=== PATIENT | male | born 1960 | race Caucasian/White ===

== ENCOUNTER 2021-10-07 17:47 | Inpatient (IN) | payer OTHER ==
--- NOTE | 2021-10-07 18:24 | ED ---
General Adult HPI - General Chief complaint: Recheck/Abnormal Lab/Rx Stated complaint: ETOH Time Seen by Provider: 10/07/21 17:51 Source: patient, EMS Mode of arrival: EMS Limitations: no limitations - History of Present Illness Initial comments: Patient is a 61-year-old male presents to the emergency room via EMS from [place] due to stumbling and falling outside injuring his left shoulder and chest wall where is he is complaining of pain. He is also experiencing significant tremors and occasional altered mental status from alcohol withdrawals. He states that he only drinks "a little bit" of red wine every day. He denies any loss of consciousness with his fall. He denies any hallucinations, delusions, suicidal or homicidal thoughts. In addition to his EtOH and smoking history has a history of hypertension and is on lisinopril at [place]. He denies any other complaints or concerns at this time. Review of Systems ROS Statement: Those systems with pertinent positive or pertinent negative responses have been documented in the HPI. ROS Other: All systems not noted in ROS Statement are negative. Past Medical History Past Medical History: Hypertension Past Surgical History: Hernia Repair Smoking Status: Current every day smoker Past Alcohol Use History: Abuse, Daily Past Drug Use History: None Reported General Exam Limitations: no limitations General appearance: alert, in no apparent distress Head exam: Present: atraumatic, normocephalic, normal inspection Eye exam: Present: normal appearance, PERRL, EOMI. Absent: scleral icterus, conjunctival injection, periorbital swelling ENT exam: Present: normal exam, mucous membranes moist Neck exam: Present: normal inspection. Absent: tenderness, meningismus, lymphadenopathy Respiratory exam: Present: normal lung sounds bilaterally, chest wall tenderness (Left-sided). Absent: respiratory distress, wheezes, rales, rhonchi, stridor Cardiovascular Exam: Present: regular rate, normal rhythm, normal heart sounds. Absent: systolic murmur, diastolic murmur, rubs, gallop, clicks GI/Abdominal exam: Present: soft, normal bowel sounds. Absent: distended, tenderness, guarding, rebound, rigid Extremities exam: Present: normal inspection, full ROM, normal capillary refill. Absent: tenderness, pedal edema, joint swelling, calf tenderness Left Shoulder Exam: Present: normal inspection, full ROM, tenderness. Absent: swelling, abrasion, laceration, deformity, crepitus, dislocation Back exam: Present: normal inspection Neurological exam: Present: alert, CN II-XII intact, other (Orientated [address] Slow responses at times but appropriate. Tremor noted to bilateral upper extremities.) Expanded Eye Response: (4) open spontaneously Motor Response: (6) obeys commands Verbal Response: (5) oriented (overall orientated difficulty with place at times.) Tae Total: 15 Psychiatric exam: Present: normal affect, normal mood Skin exam: Present: warm, dry, intact, normal color. Absent: rash Course Vital Signs 10/07/21 17:58 Temperature 98.5 F Pulse Rate 99 Respiratory 20 Rate Blood Pressure 113/87 Medical Decision Making - Medical Decision Making Active upper extremity tremor noted no generalized seizing. Alert and orientated [address] as he is not from the area but overall orientated. Slow responses at times. Recent fall with complaints of left shoulder and left rib cage pain without any popping or range of motion impairment. No altered mental status or head trauma. No need for CT of the head. Check x-ray of left shoulder and left rib cage due to trauma with pain. Will need admission given active DTs with serial protocol. No local provider. No local primary care provider. Will notify [facility] regarding admission for alcohol withdrawal with DTs. - Lab Data Result diagrams: 10/07/21 18:24 10/07/21 18:24 Lab Results 10/07/21 10/07/21 Range/Units 18:24 18:24 WBC 6.0 (3.8-10.6) k/uL RBC 3.63 L (4.30-5.90) m/uL Hgb 12.6 L (13.0-17.5) gm/dL Hct 36.4 L (39.0-53.0) % MCV 100.2 H (80.0-100.0) fL MCH 34.6 (25.0-35.0) pg MCHC 34.5 (31.0-37.0) g/dL RDW 12.5 (11.5-15.5) % Plt Count 252 (150-450) k/uL MPV 7.1 Neutrophils % 64 % Lymphocytes % 25 % Monocytes % 7 % Eosinophils % 2 % Basophils % 1 % Neutrophils # 3.8 (1.3-7.7) k/uL Lymphocytes # 1.5 (1.0-4.8) k/uL Monocytes # 0.4 (0-1.0) k/uL Eosinophils # 0.1 (0-0.7) k/uL Basophils # 0.1 (0-0.2) k/uL Sodium 129 L (137-145) mmol/L Potassium 3.9 (3.5-5.1) mmol/L Chloride 100 (98-107) mmol/L Carbon Dioxide 26 (22-30) mmol/L Anion Gap 3 mmol/L BUN 8 L (9-20) mg/dL Creatinine 0.64 L (0.66-1.25) mg/dL Est GFR (CKD-EPI)AfAm >90 (>60 ml/min/1.73 sqM) Est GFR (CKD-EPI)NonAf >90 (>60 ml/min/1.73 sqM) Glucose 91 (74-99) mg/dL Calcium 8.7 (8.4-10.2) mg/dL Phosphorus 3.5 (2.5-4.5) mg/dL Magnesium 1.9 (1.6-2.3) mg/dL Total Bilirubin 0.7 (0.2-1.3) mg/dL AST 117 H (17-59) U/L ALT 86 H (4-49) U/L Alkaline Phosphatase 62 (38-126) U/L Total Protein 6.0 L (6.3-8.2) g/dL Albumin 3.7 (3.5-5.0) g/dL Serum Alcohol <10 mg/dL - EKG Data EKG Comments: Sinus rhythm, ventricular rate 82 bpm, ID interval 143 ms, QRS duration 80 ms, QT/QTC 362/401 ms, ID T axis 61, 23, 37 - Radiology Data Radiology results: report reviewed, image reviewed Disposition Clinical Impression: Alcohol abuse with withdrawal Disposition: ADMITTED IP TO THIS [facility] Condition: Stable Is patient prescribed a controlled substance at d/c from ED?: No Referrals: None,Stated [Primary Care Provider] - 1-2 days Time of Disposition: 18:48
[2021-10-07 18:33] LABS: Basophils # (A) 0.1 k/uL (0-0.2); Basophils % (A) 1 %; Eosinophils # (A) 0.1 k/uL (0-0.7); Eosinophils % (A) 2 %; HCT 36.4 % (39.0-53.0); HGB 12.6 gm/dL (13.0-17.5); Lymphocytes # (A) 1.5 k/uL (1.0-4.8); Lymphocytes % (A) 25 %; MCH 34.6 pg (25.0-35.0); MCHC 34.5 g/dL (31.0-37.0); MCV 100.2 fL (80.0-100.0); Mean Platelet Volume 7.1; Monocytes # (A) 0.4 k/uL (0-1.0); Monocytes % (A) 7 %; Neutrophils # (A) 3.8 k/uL (1.3-7.7); Neutrophils % (A) 64 %; Platelet Count 252 k/uL (150-450); RBC 3.63 m/uL (4.30-5.90); RDW 12.5 % (11.5-15.5)
[2021-10-07 18:43] LABS: ALT 86 U/L (4-49); AST 117 U/L (17-59); African American GFR (CKD) >90 (>60 ml/min/1.73 sqM); Albumin 3.7 g/dL (3.5-5.0); Alcohol <10 mg/dL; Alkaline Phosphatase 62 U/L (38-126); Anion Gap 3 mmol/L; Blood Urea Nitrogen 8 mg/dL (9-20); Calcium 8.7 mg/dL (8.4-10.2); Carbon Dioxide 26 mmol/L (22-30); Chloride 100 mmol/L (98-107); Glucose 91 mg/dL (74-99); Magnesium 1.9 mg/dL (1.6-2.3); Non-African American GFR(CKD) >90 (>60 ml/min/1.73 sqM); Phosphorus 3.5 mg/dL (2.5-4.5); Potassium 3.9 mmol/L (3.5-5.1); Sodium 129 mmol/L (137-145); Total Bilirubin 0.7 mg/dL (0.2-1.3)
[2021-10-07] MEDS ORDERED: NALOXONE 0.4 MG/ML 1 ML VIAL IV PRN (18:45)
[2021-10-07 18:55] LABS: Prothrombin Time 10.6 sec (9.0-12.0)
[2021-10-07 19:04] LABS: Cocaine Screen,Urine Not Detected (NotDetected); Phencyclidine Screen,Urine Not Detected (NotDetected); Urn Cannabinoid Scrn Not Detected (NotDetected)
[2021-10-07 19:05] LABS: Amphetamine Screen,Urine Not Detected (NotDetected); Barbiturate Screen,Urine Not Detected (NotDetected); Benzodiazepines Screen,Urine Detected (NotDetected); Methadone Screen, Urine Not Detected (NotDetected); Opiate Screen,Urine Not Detected (NotDetected); Oxycodone Screen, Urine Not Detected (NotDetected); Tricyclic Antidepressant,Urine Not Detected (NotDetected)
[2021-10-07] MEDS ORDERED: SODIUM CHLORIDE 0.9% 1,000 ML with MVI, ADULT NO.4 WITH VIT K 10 ML, THIAMINE 100 MG, F... IV ONE ×4 (19:15)
--- NOTE | 2021-10-07 19:31 | XR ---
EXAMINATION TYPE: XR shoulder complete LT DATE OF EXAM: 10/07/2021 COMPARISON: NONE HISTORY: Shoulder pain TECHNIQUE: 3 views FINDINGS: There is no evidence of fracture nor dislocation. Joint spaces are normal. There are no pat hologic calcifications. IMPRESSION: Negative left shoulder exam. No fracture.
--- NOTE | 2021-10-07 19:35 | XR ---
EXAMINATION TYPE: XR ribs LT DATE OF EXAM: 10/07/2021 COMPARISON: NONE HISTORY: Rib pain TECHNIQUE: 4 views FINDINGS: There is no evidence of pleural effusion or pneumothorax. Left ribs are intact. Left should er intact. IMPRESSION: Negative left rib exam. No fracture
[2021-10-07] MEDS: LORazepam 2 MG/ML INJ IV PRN (21:33)
[2021-10-08] MEDS: LORazepam 2 MG/ML INJ IV PRN ×8 (04:49→17:58)
[2021-10-08 08:45] LABS: African American GFR (CKD) >90 (>60 ml/min/1.73 sqM); Anion Gap 2 mmol/L; Blood Urea Nitrogen 5 mg/dL (9-20); Calcium 8.4 mg/dL (8.4-10.2); Carbon Dioxide 25 mmol/L (22-30); Chloride 104 mmol/L (98-107); Glucose 120 mg/dL (74-99); Non-African American GFR(CKD) >90 (>60 ml/min/1.73 sqM); Potassium 3.7 mmol/L (3.5-5.1); Sodium 131 mmol/L (137-145)
[2021-10-08 12:27] VITALS: BMI 18.8
[2021-10-08] MEDS: chlordiazePOXIDE 25 MG CAP PO SCH ×2 (13:45→18:09)
--- NOTE | 2021-10-08 17:58 | P.HPIM ---
History of Present Illness H&P Date: 10/07/21 Chief Complaint: EtOH 61-year-old male presents to the emergency room via EMS from [place] due to stumbling and falling outside injuring his left shoulder and chest wall where is he is complaining of pain. He is also experiencing significant tremors and occasional altered mental status from alcohol withdrawals. He states that he only drinks "a little bit" of red wine every day. He denies any loss of consciousness with his fall. He denies any hallucinations, delusions, suicidal or homicidal thoughts. In addition to his EtOH and smoking history has a history of hypertension and is on lisinopril at [place]. He denies any other complaints or concerns at this time. Alert and orientated [address] as he is not from the area but overall orientated. Slow responses at times. Recent fall with complaints of left shoulder and left rib cage pain without any popping or range of motion impairment. No altered mental status or head trauma. No need for CT of the head. Check x-ray of left shoulder and left rib cage due to trauma with pain. Will need admission given active DTs with serial protocol. Blood work reveals sodium of 129, potassium 3.9, BUN of 8, creatinine 0.6 and blood glucose of 91; AST 117 with ALT of 86 Review of Systems REVIEW OF SYSTEMS: CONSTITUTIONAL: No fever, no malaise, no fatigue. HEENT: No recent visual problems or hearing problems. Denied any sore throat. CARDIOVASCULAR: No chest pain, orthopnea, PND, no palpitations, no syncope. PULMONARY: No shortness of breath, no cough, no hemoptysis. GASTROINTESTINAL: No diarrhea, no nausea, no vomiting, no abdominal pain. NEUROLOGICAL: No headaches, no weakness, no numbness. HEMATOLOGICAL: Denies any bleeding or petechiae. GENITOURINARY: Denies any burning micturition, frequency, or urgency. MUSCULOSKELETAL/RHEUMATOLOGICAL: Denies any joint pain, swelling, or any muscle pain. ENDOCRINE: Denies any polyuria or polydipsia. The rest of the 14-point review of systems is negative. Past Medical History Past Medical History: Hypertension Past Surgical History: Hernia Repair Smoking Status: Current every day smoker Past Alcohol Use History: Abuse, Daily Past Drug Use History: None Reported Medications and Allergies Home Medications Medication Instructions Recorded Confirmed Type Folic Acid 0.4 mg PO DAILY 10/07/21 10/07/21 History LORazepam [Ativan] 1 - 2 mg PO Q4H 10/07/21 10/07/21 History Thiamine [Vitamin B-1] 100 mg PO DAILY 10/07/21 10/07/21 History cloNIDine HCL [Catapres] 0.1 - 0.3 mg PO Q4H PRN 10/07/21 10/07/21 History lisinopriL [Zestril] 10 mg PO DAILY 10/07/21 10/07/21 History Allergies Allergy/AdvReac Type Severity Reaction Status Date / Time No Known Allergies Allergy Verified 10/07/21 19:40 Physical Exam Vitals: Vital Signs Temp Pulse Resp BP 10/07/21 17:58 98.5 F 99 20 113/87 Intake and Output 10/07/21 10/07/21 10/07/21 06:59 14:59 22:59 Other: Weight 54.431 kg PHYSICAL EXAMINATION: GENERAL: The patient is alert and oriented x3, not in any acute distress. Well developed, well nourished. HEENT: Pupils are round and equally reacting to light. EOMI. No scleral icterus. No conjunctival pallor. Normocephalic, atraumatic. No pharyngeal erythema. No thyromegaly. CARDIOVASCULAR: S1 and S2 present. No murmurs, rubs, or gallops. PULMONARY: Chest is clear to auscultation, no wheezing or crackles. ABDOMEN: Soft, nontender, nondistended, normoactive bowel sounds. No palpable organomegaly. MUSCULOSKELETAL: No joint swelling or deformity. EXTREMITIES: No cyanosis, clubbing, or pedal edema. NEUROLOGICAL: Gross neurological examination did not reveal any focal deficits. SKIN: No rashes. Results CBC & Chem 7: 10/07/21 18:24 10/08/21 08:00 Labs: Abnormal Lab Results - Last 24 Hours (Table) 10/07/21 10/07/21 10/07/21 Range/Units 18:24 18:24 18:30 RBC 3.63 L (4.30-5.90) m/uL Hgb 12.6 L (13.0-17.5) gm/dL Hct 36.4 L (39.0-53.0) % MCV 100.2 H (80.0-100.0) fL Sodium 129 L (137-145) mmol/L BUN 8 L (9-20) mg/dL Creatinine 0.64 L (0.66-1.25) mg/dL AST 117 H (17-59) U/L ALT 86 H (4-49) U/L Total Protein 6.0 L (6.3-8.2) g/dL U Benzodiazepines Scrn Detected H (NotDetected) Assessment and Plan Assessment: 1. EtOH abuse/withdrawal - Patient has been started on IV fluids with thiamine and folic acid; start patient on CIWA protocol with Ativan; Librium as needed 2. Hyponatremia; sodium is 129; start patient on IV fluid hydration and monitor electrolytes closely; make further adjustments as needed 3. Transaminitis; likely related to EtOH abuse; we will monitor liver enzymes closely; planned to initiate further workup if liver enzymes continue to trend up 4. Left shoulder/rib pain; x-ray completed in ED which is negative for fracture; likely related to fall 5. Hypertension; lisinopril 10 mg daily 6. Chronic tobacco use; nicotine patch while inpatient DVT prophylaxis; SCDs CODE STATUS; full code
[2021-10-08] MEDS ORDERED: PHENobarbital SODIUM 130 MG/ML 1 ML VIAL IV ONE (21:00)
[2021-10-08] MEDS: NICOTINE 14MG/24HR PATCH TRANSDERM SCH (21:16)
[2021-10-09] MEDS: diazePAM 5 MG TAB PO SCH ×3 (03:10→17:47)
[2021-10-09] MEDS: LORazepam 2 MG/ML INJ IV PRN ×6 (05:35→20:30)
[2021-10-09] MEDS: NICOTINE 14MG/24HR PATCH TRANSDERM SCH ×2 (08:23→20:48)
[2021-10-09] MEDS: lisinopriL 10 MG TAB PO SCH (08:23)
[2021-10-09 12:05] LABS: African American GFR (CKD) 118.5 (60.0-200.0); Anion Gap 11.6 mmol/L (10.00-18.00); BUN/Creat Ratio 4.78 Ratio (12.00-20.00); Blood Urea Nitrogen 3.3 mg/dL (9.0-27.0); Calcium 8.4 mg/dL (8.7-10.3); Carbon Dioxide 23.1 mmol/L (20.0-27.5); Non-African American GFR(CKD) 102.3 (60.0-200.0); Potassium 3.7 mmol/L (3.5-5.5)
[2021-10-09 13:24] LABS: African American GFR (CKD) >90 (>60 ml/min/1.73 sqM); Anion Gap 6 mmol/L; Blood Urea Nitrogen 3 mg/dL (9-20); Calcium 8.4 mg/dL (8.4-10.2); Carbon Dioxide 23 mmol/L (22-30); Chloride 102 mmol/L (98-107); Glucose 123 mg/dL (74-99); Non-African American GFR(CKD) >90 (>60 ml/min/1.73 sqM); Potassium 3.6 mmol/L (3.5-5.1); Sodium 131 mmol/L (137-145)
[2021-10-09 13:54] LABS: Basophils # (A) 0.1 k/uL (0-0.2); Basophils % (A) 1 %; Eosinophils # (A) 0.1 k/uL (0-0.7); Eosinophils % (A) 2 %; HCT 43.6 % (39.0-53.0); HGB 14.3 gm/dL (13.0-17.5); Lymphocytes # (A) 0.9 k/uL (1.0-4.8); Lymphocytes % (A) 16 %; MCH 33.8 pg (25.0-35.0); MCHC 32.7 g/dL (31.0-37.0); MCV 103.3 fL (80.0-100.0); Macrocytosis Slight; Mean Platelet Volume 8.1; Monocytes # (A) 0.5 k/uL (0-1.0); Monocytes % (A) 9 %; Neutrophils # (A) 4.1 k/uL (1.3-7.7); Neutrophils % (A) 71 %; Platelet Count 226 k/uL (150-450); RBC 4.22 m/uL (4.30-5.90); RDW 12.3 % (11.5-15.5); WBC 5.8 k/uL (3.8-10.6)
[2021-10-09] MEDS ORDERED: PHENobarbital SODIUM 130 MG/ML 1 ML VIAL IV ONE (21:30)
[2021-10-10] MEDS: diazePAM 5 MG TAB PO SCH ×2 (02:21→08:52)
[2021-10-10] MEDS: NICOTINE 14MG/24HR PATCH TRANSDERM SCH (08:52)
[2021-10-10] MEDS: lisinopriL 10 MG TAB PO SCH (08:52)
[2021-10-10 09:05] LABS: African American GFR (CKD) 125.8 (60.0-200.0); Anion Gap 11.8 mmol/L (10.00-18.00); Blood Urea Nitrogen 3.6 mg/dL (9.0-27.0); Calcium 8.5 mg/dL (8.7-10.3); Carbon Dioxide 22.2 mmol/L (20.0-27.5); Non-African American GFR(CKD) 108.5 (60.0-200.0); Potassium 3.8 mmol/L (3.5-5.5)
[2021-10-10] MEDS: LORazepam 2 MG/ML INJ IV PRN (10:54)
[2021-10-10] MEDS ORDERED: THIAMINE 100 MG/ML 2 ML VIAL IM STA (11:20)
--- NOTE | 2021-10-10 11:20 | P.PN ---
Subjective Progress Note Date: 10/09/21 Principal diagnosis: EtOH abuse/withdrawal Transaminitis Hyponatremia 61-year-old male presents to the emergency room via EMS from [place] due to stumbling and falling outside injuring his left shoulder and chest wall where is he is complaining of pain. He is also experiencing significant tremors and occasional altered mental status from alcohol withdrawals. He states that he only drinks "a little bit" of red wine every day. He denies any loss of consciousness with his fall. He denies any hallucinations, delusions, suicidal or homicidal thoughts. In addition to his EtOH and smoking history has a history of hypertension and is on lisinopril at [place]. He denies any other complaints or concerns at this time. Alert and orientated [address] as he is not from the area but overall orientated. Slow responses at times. Recent fall with complaints of left shoulder and left rib cage pain without any popping or range of motion impairment. No altered mental status or head trauma. No need for CT of the head. Check x-ray of left shoulder and left rib cage due to trauma with pain. Will need admission given active DTs with serial protocol. Blood work reveals sodium of 129, potassium 3.9, BUN of 8, creatinine 0.6 and blood glucose of 91; AST 117 with ALT of 86 10/09/2021 Patient is seen and evaluated sitting up in bed; more alert this morning; reports he's feeling as shaky; no complaining of chest and shortness of breath Vital signs are reviewed and blood pressure remains elevated at 161/88; pulse of 75 with a saturation of 100% on room air Patient remains on CIWA protocol with Ativan; has been placed on Librium 25 mg 3 times a day; continues to require extra doses of phenobarbital - Continue with IV fluids as ordered along with thiamine and folic acid Objective - Vital Signs Vital signs: Vital Signs Temp 98.2 F 10/09/21 08:00 Pulse 74 10/09/21 08:00 Resp 18 10/09/21 02:00 BP 160/94 10/09/21 08:00 Pulse Ox 99 10/09/21 08:00 FiO2 Intake & Output 10/08/21 10/09/21 10/09/21 18:59 06:59 18:59 Output Total 150 Balance -150 Weight 54.431 kg Output: Urine 150 Other: Voiding Method Urinal Diaper Incontinent External Catheter # Voids 2 3 - Exam GENERAL: The patient is alert and oriented x3, not in any acute distress. Well developed, well nourished. HEENT: Pupils are round and equally reacting to light. EOMI. No scleral icterus. No conjunctival pallor. Normocephalic, atraumatic. No pharyngeal erythema. No thyromegaly. CARDIOVASCULAR: S1 and S2 present. No murmurs, rubs, or gallops. PULMONARY: Chest is clear to auscultation, no wheezing or crackles. ABDOMEN: Soft, nontender, nondistended, normoactive bowel sounds. No palpable organomegaly. MUSCULOSKELETAL: No joint swelling or deformity. EXTREMITIES: No cyanosis, clubbing, or pedal edema. NEUROLOGICAL: Gross neurological examination did not reveal any focal deficits. SKIN: No rashes. - Labs CBC & Chem 7: 10/09/21 07:25 10/10/21 05:44 Assessment and Plan Assessment: 1. EtOH abuse/withdrawal - Patient has been started on IV fluids with thiamine and folic acid; start patient on CIWA protocol with Ativan; Librium as needed 2. Hyponatremia; sodium is 129; start patient on IV fluid hydration and monitor electrolytes closely; make further adjustments as needed 3. Transaminitis; likely related to EtOH abuse; we will monitor liver enzymes closely; planned to initiate further workup if liver enzymes continue to trend up 4. Left shoulder/rib pain; x-ray completed in ED which is negative for fracture; likely related to fall 5. Hypertension; lisinopril 10 mg daily 6. Chronic tobacco use; nicotine patch while inpatient DVT prophylaxis; SCDs CODE STATUS; full code
--- NOTE | 2021-10-10 14:52 | P.PN ---
Subjective Progress Note Date: 10/10/21 Principal diagnosis: EtOH abuse/withdrawal Transaminitis Hyponatremia 61-year-old male presents to the emergency room via EMS from [place] due to stumbling and falling outside injuring his left shoulder and chest wall where is he is complaining of pain. He is also experiencing significant tremors and occasional altered mental status from alcohol withdrawals. He states that he only drinks "a little bit" of red wine every day. He denies any loss of consciousness with his fall. He denies any hallucinations, delusions, suicidal or homicidal thoughts. In addition to his EtOH and smoking history has a history of hypertension and is on lisinopril at [place]. He denies any other complaints or concerns at this time. Alert and orientated [address] as he is not from the area but overall orientated. Slow responses at times. Recent fall with complaints of left shoulder and left rib cage pain without any popping or range of motion impairment. No altered mental status or head trauma. No need for CT of the head. Check x-ray of left shoulder and left rib cage due to trauma with pain. Will need admission given active DTs with serial protocol. Blood work reveals sodium of 129, potassium 3.9, BUN of 8, creatinine 0.6 and blood glucose of 91; AST 117 with ALT of 86 10/09/2021 Patient is seen and evaluated sitting up in bed; more alert this morning; reports he's feeling as shaky; no complaining of chest and shortness of breath Vital signs are reviewed and blood pressure remains elevated at 161/88; pulse of 75 with a saturation of 100% on room air Patient remains on CIWA protocol with Ativan; has been placed on Librium 25 mg 3 times a day; continues to require extra doses of phenobarbital - Continue with IV fluids as ordered along with thiamine and folic acid 10/10/2021 Patient is seen and evaluated sitting up in bed; remains sleepy but arousable Vital signs are reviewed and stable Patient continued to be intolerant to CIWA protocol with Ativan; patient has received phenobarbital which seems to be more effective; plan to switch patient to CIWA protocol with phenobarbital Patient remains on IV fluid hydration; we will continue to monitor electrolytes and renal function Objective - Vital Signs Vital signs: Vital Signs Temp 96.6 F L 10/10/21 08:00 Pulse 91 10/10/21 08:00 Resp 16 10/10/21 08:00 BP 150/94 10/10/21 08:00 Pulse Ox 95 10/10/21 08:00 FiO2 Intake & Output 10/09/21 10/10/21 10/10/21 18:59 06:59 18:59 Intake Total 180 Output Total 150 Balance -150 180 Intake: Oral 180 Output: Urine 150 Other: Voiding Method Toilet Toilet Diaper Diaper Incontinent Incontinent # Voids 2 3 # Bowel Movements 0 - Exam GENERAL: The patient is alert and oriented x3, not in any acute distress. Well developed, well nourished. HEENT: Pupils are round and equally reacting to light. EOMI. No scleral icterus. No conjunctival pallor. Normocephalic, atraumatic. No pharyngeal erythema. No thyromegaly. CARDIOVASCULAR: S1 and S2 present. No murmurs, rubs, or gallops. PULMONARY: Chest is clear to auscultation, no wheezing or crackles. ABDOMEN: Soft, nontender, nondistended, normoactive bowel sounds. No palpable organomegaly. MUSCULOSKELETAL: No joint swelling or deformity. EXTREMITIES: No cyanosis, clubbing, or pedal edema. NEUROLOGICAL: Gross neurological examination did not reveal any focal deficits. SKIN: No rashes. - Labs CBC & Chem 7: 10/09/21 07:25 10/10/21 05:44 Labs: Abnormal Lab Results - Last 24 Hours (Table) 10/09/21 10/09/21 10/09/21 Range/Units 07:25 07:25 13:12 RBC 4.22 L (4.30-5.90) m/uL MCV 103.3 H (80.0-100.0) fL Lymphocytes # 0.9 L (1.0-4.8) k/uL Sodium 131 L (137-145) mmol/L BUN 3.3 L 3 L (9.0-27.0) mg/dL Creatinine 0.54 L (0.66-1.25) mg/dL BUN/Creatinine Ratio 4.78 L (12.00-20.00) Ratio Glucose 123 H (74-99) mg/dL Calcium 8.4 L (8.7-10.3) mg/dL 10/10/21 Range/Units 05:44 RBC (4.30-5.90) m/uL MCV (80.0-100.0) fL Lymphocytes # (1.0-4.8) k/uL Sodium (137-145) mmol/L BUN 3.6 L (9.0-27.0) mg/dL Creatinine (0.66-1.25) mg/dL BUN/Creatinine Ratio 6.00 L (12.00-20.00) Ratio Glucose (74-99) mg/dL Calcium 8.5 L (8.7-10.3) mg/dL Assessment and Plan Assessment: 1. EtOH abuse/withdrawal - Patient has been started on IV fluids with thiamine and folic acid; start patient on CIWA protocol with Ativan; Librium as needed 2. Hyponatremia; sodium is 129; start patient on IV fluid hydration and monitor electrolytes closely; make further adjustments as needed 3. Transaminitis; likely related to EtOH abuse; we will monitor liver enzymes closely; planned to initiate further workup if liver enzymes continue to trend up 4. Left shoulder/rib pain; x-ray completed in ED which is negative for fracture; likely related to fall 5. Hypertension; lisinopril 10 mg daily 6. Chronic tobacco use; nicotine patch while inpatient DVT prophylaxis; SCDs CODE STATUS; full code
[2021-10-10] MEDS: THIAMINE 100 MG TAB PO SCH (16:30)
[2021-10-10] MEDS ORDERED: cloNIDine HCL 0.1 MG TAB PO STA (20:47)
[2021-10-10] MEDS ORDERED: cloNIDine HCL 0.2 MG TAB PO PRN (20:59)
[2021-10-10] MEDS ORDERED: PHENobarbitaL 16.2 MG TAB PO ONE (23:21)
[2021-10-11] MEDS ORDERED: PHENobarbitaL 16.2 MG TAB PO ONE (03:21)
[2021-10-11] MEDS: lisinopriL 10 MG TAB PO SCH (07:42)
[2021-10-11] MEDS: FOLIC ACID 1 MG TAB PO SCH (07:43)
[2021-10-11 10:50] LABS: African American GFR (CKD) 125.8 (60.0-200.0); BUN/Creat Ratio 6.67 Ratio (12.00-20.00); Calcium 8.7 mg/dL (8.7-10.3); Non-African American GFR(CKD) 108.5 (60.0-200.0); Potassium 4.2 mmol/L (3.5-5.5)
[2021-10-11] MEDS: THIAMINE 100 MG TAB PO SCH ×2 (12:58→16:05)
--- NOTE | 2021-10-12 05:20 | P.PN ---
Subjective Progress Note Date: 10/11/21 EtOH abuse/withdrawal Transaminitis Hyponatremia 61-year-old male presents to the emergency room via EMS from [place] due to stumbling and falling outside injuring his left shoulder and chest wall where is he is complaining of pain. He is also experiencing significant tremors and occasional altered mental status from alcohol withdrawals. He states that he only drinks "a little bit" of red wine every day. He denies any loss of consciousness with his fall. He denies any hallucinations, delusions, suicidal or homicidal thoughts. In addition to his EtOH and smoking history has a history of hypertension and is on lisinopril at [place]. He denies any other complaints or concerns at this time. Alert and orientated [address] as he is not from the area but overall orientated. Slow responses at times. Recent fall with complaints of left shoulder and left rib cage pain without any popping or range of motion impairment. No altered mental status or head trauma. No need for CT of the head. Check x-ray of left shoulder and left rib cage due to trauma with pain. Will need admission given active DTs with serial protocol. Blood work reveals sodium of 129, potassium 3.9, BUN of 8, creatinine 0.6 and blood glucose of 91; AST 117 with ALT of 86 10/09/2021 Patient is seen and evaluated sitting up in bed; more alert this morning; reports he's feeling as shaky; no complaining of chest and shortness of breath Vital signs are reviewed and blood pressure remains elevated at 161/88; pulse of 75 with a saturation of 100% on room air Patient remains on CIWA protocol with Ativan; has been placed on Librium 25 mg 3 times a day; continues to require extra doses of phenobarbital - Continue with IV fluids as ordered along with thiamine and folic acid 10/10/2021 Patient is seen and evaluated sitting up in bed; remains sleepy but arousable Vital signs are reviewed and stable Patient continued to be intolerant to CIWA protocol with Ativan; patient has received phenobarbital which seems to be more effective; plan to switch patient to CIWA protocol with phenobarbital Patient remains on IV fluid hydration; we will continue to monitor electrolytes and renal function 10/11/2021 Patient is seen today and is lethargic but arousable. Patient is being followed by PT/OT therapy and working with them. Patient continues to be weak and encouraged increased activity as tolerated. Patient is continued on phenobarb CIWA protocol. Mentation is improving. Patient is afebrile and denies chest pain or shortness of breath. Patient denies nausea or vomiting and has been tolerating oral intake. Review of systems: Constitutional: reports of fatigue, no fever, or chills Cardiovascular: No reports of chest pain or palpitations Respiratory: No reports of shortness of breath or cough GI: No reports of nausea, vomiting, or diarrhea : No reports of dysuria or retention Neurovascular: reports of generalized weakness All medications have been reviewed Physical exam: GENERAL: The patient is alert and oriented x3, not in any acute distress. Well developed, well nourished. HEENT: Pupils are round and equally reacting to light. EOMI. No scleral icterus. No conjunctival pallor. Normocephalic, atraumatic. No pharyngeal erythema. No thyromegaly. CARDIOVASCULAR: S1 and S2 present. No murmurs, rubs, or gallops. PULMONARY: Chest is clear to auscultation, no wheezing or crackles. ABDOMEN: Soft, nontender, nondistended, normoactive bowel sounds. No palpable organomegaly. MUSCULOSKELETAL: No joint swelling or deformity. EXTREMITIES: No cyanosis, clubbing, or pedal edema. NEUROLOGICAL: Gross neurological examination did not reveal any focal deficits. SKIN: No rashes. Assessment: -EtOH abuse/withdrawal -Hyponatremia -Transaminitis; likely related to EtOH abuse -Left shoulder/rib pain; x-ray completed in ED which is negative for fracture; likely related to fall -Hypertension -Chronic tobacco use; nicotine patch while inpatient -DVT prophylaxis; SCDs -full code Plan: Recommend to continue with CIWA protocol using phenobarb at this time. Patient is weak and working with PT/OT therapy recommending possible ECF Sister would like patient to go to rehab for strength and mobility and then return to alcohol rehab Encouraged oral intake and increased activity as tolerated Case management following and working on accepting ecf/vs alcohol rehab. The impression and plan of care has been dictated by Neida Deleon, Nurse Practitioner as directed. MD Rich I have performed a history and examination and MDM of this patient, discussed the same with the dictator, and agree with the dictator's assessment and plan as written ,documented as a scribe. Based on total visit time, I have performed more than 50% of the visit. Objective - Vital Signs Vital signs: Vital Signs Temp 98.1 F 10/11/21 07:53 Pulse 63 10/11/21 07:53 Resp 16 10/11/21 07:53 BP 146/88 10/11/21 07:53 Pulse Ox 97 10/11/21 07:53 FiO2 Intake & Output 10/10/21 10/11/21 10/11/21 18:59 06:59 18:59 Other: Voiding Method Toilet Toilet Toilet Diaper Diaper Diaper Incontinent Incontinent Incontinent - Labs CBC & Chem 7: 10/09/21 07:25 10/11/21 06:31
[2021-10-12] MEDS: FOLIC ACID 1 MG TAB PO SCH (07:59)
[2021-10-12] MEDS: lisinopriL 10 MG TAB PO SCH (08:00)
[2021-10-12] MEDS: NICOTINE 14MG/24HR PATCH TRANSDERM SCH ×2 (11:44→13:59)
[2021-10-12] MEDS: THIAMINE 100 MG TAB PO SCH ×2 (13:03→16:28)
--- NOTE | 2021-10-12 16:08 | P.PN ---
Subjective Progress Note Date: 10/12/21 EtOH abuse/withdrawal Transaminitis Hyponatremia 61-year-old male presents to the emergency room via EMS from [place] due to stumbling and falling outside injuring his left shoulder and chest wall where is he is complaining of pain. He is also experiencing significant tremors and occasional altered mental status from alcohol withdrawals. He states that he only drinks "a little bit" of red wine every day. He denies any loss of consciousness with his fall. He denies any hallucinations, delusions, suicidal or homicidal thoughts. In addition to his EtOH and smoking history has a history of hypertension and is on lisinopril at [place]. He denies any other complaints or concerns at this time. Alert and orientated [address] as he is not from the area but overall orientated. Slow responses at times. Recent fall with complaints of left shoulder and left rib cage pain without any popping or range of motion impairment. No altered mental status or head trauma. No need for CT of the head. Check x-ray of left shoulder and left rib cage due to trauma with pain. Will need admission given active DTs with serial protocol. Blood work reveals sodium of 129, potassium 3.9, BUN of 8, creatinine 0.6 and blood glucose of 91; AST 117 with ALT of 86 10/09/2021 Patient is seen and evaluated sitting up in bed; more alert this morning; reports he's feeling as shaky; no complaining of chest and shortness of breath Vital signs are reviewed and blood pressure remains elevated at 161/88; pulse of 75 with a saturation of 100% on room air Patient remains on CIWA protocol with Ativan; has been placed on Librium 25 mg 3 times a day; continues to require extra doses of phenobarbital - Continue with IV fluids as ordered along with thiamine and folic acid 10/10/2021 Patient is seen and evaluated sitting up in bed; remains sleepy but arousable Vital signs are reviewed and stable Patient continued to be intolerant to CIWA protocol with Ativan; patient has received phenobarbital which seems to be more effective; plan to switch patient to CIWA protocol with phenobarbital Patient remains on IV fluid hydration; we will continue to monitor electrolytes and renal function 10/11/2021 Patient is seen today and is lethargic but arousable. Patient is being followed by PT/OT therapy and working with them. Patient continues to be weak and encouraged increased activity as tolerated. Patient is continued on phenobarb [facility] protocol. Mentation is improving. Patient is afebrile and denies chest pain or shortness of breath. Patient denies nausea or vomiting and has been tolerating oral intake. 10/12/2021 Patient is seen in follow-up today much more awake and alert. Patient reports he continues with weakness and has been working with physical therapy. Recommending ECF versus alcohol rehab although sister who helps care for him would like him to go to rehab to continue with PT/OT therapy for strength and mobility prior to resuming alcohol rehab. Patient is maintained on phenobarb protocol and we'll continue to wean as tolerated. Continue to monitor for any signs of withdrawal. Case management also following and working on possible ECF as patient continues to be weak and physical therapy is recommending subacute rehab. Patient is afebrile denies chest pain or shortness of breath. Patient is tolerating oral intake and encouraged oral intake and also increased activity as tolerated. Patient encouraged to get up out of the bed more often and sit up in the chair. Review of systems: Constitutional: no reports of fatigue, no fever, or chills Cardiovascular: No reports of chest pain or palpitations Respiratory: No reports of shortness of breath or cough GI: No reports of nausea, vomiting, or diarrhea : No reports of dysuria or retention Neurovascular: reports of generalized weakness All medications have been reviewed Physical exam: GENERAL: The patient is alert and oriented x3, not in any acute distress. Well developed, well nourished. HEENT: Pupils are round and equally reacting to light. EOMI. No scleral icterus. No conjunctival pallor. Normocephalic, atraumatic. No pharyngeal erythema. No thyromegaly. CARDIOVASCULAR: S1 and S2 present. No murmurs, rubs, or gallops. PULMONARY: Chest is clear to auscultation, no wheezing or crackles. ABDOMEN: Soft, nontender, nondistended, normoactive bowel sounds. No palpable organomegaly. MUSCULOSKELETAL: No joint swelling or deformity. EXTREMITIES: No cyanosis, clubbing, or pedal edema. NEUROLOGICAL: Gross neurological examination did not reveal any focal deficits. Diffusely weak SKIN: No rashes. Assessment: -EtOH abuse/withdrawal -Hyponatremia, improved -Transaminitis; likely related to EtOH abuse -Left shoulder/rib pain; x-ray completed in ED which is negative for fracture; likely related to fall -Hypertension -Chronic tobacco use; nicotine patch while inpatient -DVT prophylaxis; SCDs -full code Plan: Recommend to continue with CIWA protocol using phenobarb at this time. Wean phenobarbital Patient is weak and working with PT/OT therapy recommending possible ECF Sister would like patient to go to rehab for strength and mobility and then retu rn to alcohol rehab Encouraged oral intake and increased activity as tolerated Recommend follow-up labs in the a.m. Case management following and working on accepting ecf/vs alcohol rehab. Possible discharge in 24-48 hours The impression and plan of care has been dictated by Neida Deleon, Nurse Practitioner as directed. MD Aston I have performed a history and examination and MDM of this patient, discussed the same with the dictator, and agree with the dictator's assessment and plan as written ,documented as a scribe. Based on total visit time, I have performed more than 50% of the visit. Objective - Vital Signs Vital signs: Vital Signs Temp 97.5 F L 10/12/21 08:00 Pulse 90 10/12/21 08:00 Resp 16 10/12/21 08:00 BP 121/78 10/12/21 08:00 Pulse Ox 98 10/12/21 08:00 FiO2 Intake & Output 10/11/21 10/12/21 10/12/21 18:59 06:59 18:59 Other: Voiding Method Toilet Toilet Diaper Diaper Incontinent Incontinent # Voids 4 1 - Labs CBC & Chem 7: 10/09/21 07:25 10/11/21 06:31 Labs: Abnormal Lab Results - Last 24 Hours (Table) 10/11/21 Range/Units 06:31 BUN 4.0 L (9.0-27.0) mg/dL BUN/Creatinine Ratio 6.67 L (12.00-20.00) Ratio
[2021-10-12] MEDS ORDERED: HALOPERIDOL LACTATE 5 MG/ML 1 ML VIAL IM PRN (23:35)
[2021-10-12] MEDS: chlordiazePOXIDE 25 MG CAP PO SCH (23:46)
[2021-10-13] MEDS: lisinopriL 10 MG TAB PO SCH (09:45)
[2021-10-13] MEDS: FOLIC ACID 1 MG TAB PO SCH (09:45)
[2021-10-13 10:44] LABS: Basophils # (A) 0.1 k/uL (0-0.2); Basophils % (A) 1 %; Eosinophils # (A) 0.2 k/uL (0-0.7); Eosinophils % (A) 3 %; HCT 39.5 % (39.0-53.0); HGB 13.2 gm/dL (13.0-17.5); Lymphocytes # (A) 1.2 k/uL (1.0-4.8); Lymphocytes % (A) 19 %; MCH 33.7 pg (25.0-35.0); MCHC 33.3 g/dL (31.0-37.0); MCV 101.2 fL (80.0-100.0); Mean Platelet Volume 7.5; Monocytes # (A) 0.9 k/uL (0-1.0); Monocytes % (A) 14 %; Neutrophils # (A) 3.9 k/uL (1.3-7.7); Neutrophils % (A) 61 %; Platelet Count 289 k/uL (150-450); RDW 12.6 % (11.5-15.5); WBC 6.5 k/uL (3.8-10.6)
[2021-10-13 10:52] LABS: African American GFR (CKD) >90 (>60 ml/min/1.73 sqM); Anion Gap 9 mmol/L; Blood Urea Nitrogen 8 mg/dL (9-20); Calcium 8.9 mg/dL (8.4-10.2); Carbon Dioxide 24 mmol/L (22-30); Chloride 103 mmol/L (98-107); Glucose 87 mg/dL (74-99); Magnesium 2.2 mg/dL (1.6-2.3); Non-African American GFR(CKD) >90 (>60 ml/min/1.73 sqM); Potassium 4.6 mmol/L (3.5-5.1); Sodium 136 mmol/L (137-145)
[2021-10-13] MEDS: chlordiazePOXIDE 25 MG CAP PO SCH (10:52)
[2021-10-13] MEDS ORDERED: LORazepam 1 MG TAB PO PRN ×2 (12:32)
[2021-10-13] MEDS ORDERED: QUEtiapine 25 MG TAB PO PRN ×2 (13:12)
[2021-10-13] MEDS: THIAMINE 100 MG TAB PO SCH ×2 (13:18→16:42)
--- NOTE | 2021-10-13 13:23 | P.CN ---
Psychiatric Consult - . Consult date: 10/13/21 Consult:: 10/13/21 13:13 IDENTIFYING DATA: This patient is a 61-year-old male who currently lives with his in a house has 3 kids. REASON FOR REFERRAL: Psychiatry was consulted for alcohol abuse and medication adjustments. HISTORY OF PRESENT ILLNESS: The patient presented to the hospital on 10/07 from [place] and apparently was stumbling and falling. Patient apparently also injured his shoulder was having tremors. He was also exhibiting altered mental status. Patient was started on phenobarbital and Librium for alcohol withdrawal symptoms. The patient's nurse states that patient has been more agitated and restless at night and not sleeping well and also impulsive. He is to see Paula and receiving haloperidol prns and nighttime. Patient was seen lying in the bed today and agreeable to speak to ticket writer. He appeared to be a fairly unreliable historian, he was suggestive during the interview. He also was confused at times and did not know the situation as to what brought him into the hospital. He believes that he was in a "apartment in [place]" and did not know that he was in the hospital today. He believes that his date was October 24. He knew his full name. He did not know his situation and had minimal insight into his alcohol use and also his cognitive status. He claims that his sleep has been fair. He claims that he has been having mild depression and mild anxiety. He states that when he takes Librium he has "a bad reaction". He is denying any history of seizures. Denying any paranoia. He was fairly directable during conversation. At this time patient denies any suicidal or homical ideations, intent or plan. Patient denies any auditory, visual hallucinations and denies any paranoia or delusions. Patients admits to using alcohol however states that he has been sober for 6 months now. He claims that he smokes cigarettes. PAST PSYCHIATRIC HISTORY: Patient has a a history of alcohol use disorder. Patient denies being on any psychiatric medications. Patient denies any previous psychiatric hospitalizations. Patient denies any psychiatric outpatient follow- up. Patient denies any history of suicide attempts in the past. PAST MEDICAL HISTORY: As per medical H&P. ALLERGIES: as per EMR. CHEMICAL DEPENDENCY HISTORY: as per HPI. FAMILY PSYCHIATRIC/SUBSTANCE USE HISTORY: denies SOCIAL HISTORY: Patient was born and raised in [facility]. He states that he completed high school. 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 He denies any legal history. He states that he lives with his in a house in the 3 kids. MENTAL STATUS EXAM: General Appearance: Patient appears to be thin, longer hair, wearing glasses, stated age is alert, attempts to cooperate. Patient appears to have fair hygiene and grooming wearing hospital gown with fair eye contact. Behavior: Patient is calmly lying in bed without any agitated behavior. He is suggestive during conversation. Speech: Patient's speech is fluent and nonpressured. Mood/Affect: Patient reports their mood is "sad sometimes", affect is congruent and constricted Suicidality/Homicidality: Patient denies having any suicidal or homicidal ideation intent or plan. Perceptions: Patient denies any visual hallucinations and denies any auditory hallucinations Though content/process: There is no evidence of any delusional thought content. Present most part linear thought process. Unreliable historian. Memory and concentration: AOX1, he knows his full name however does not know today's date and believes that he is an apartment in [place], fair attention span. Cannot spell "WORLD" backwards Judgment and insight: Limited IMPRESSIONS: probable neurocognitive disorder alcohol use disorder severe dependence nicotine dependence PLAN: -At this time patient DOES NOT meet criteria for inpatient psychiatric admission. -Delirium precautions recommended with patient including - avoiding use of narcotics and CLE[employer]ING [employer]AM [employer]BER sedatives, limit anticholinergic medications when possible, frequent re-orientation, minimize use of restraints, open window shades during the day and close them at night -Would recommend the following medication changes/additions: spoke with SHEARING MACHINE TENDER over the phone about the goal to decrease/titrate patient off phenobarb and also librium slowly as this may be contributing to patients confusion and unsteady gate. Will decrease Librium to 20 mg tid for now and please decrease phenobarb slowly. I added seroquel 25 mg qhs for agitation/insomnia with 25 mg qhs prn additional if patient needs more help with sleep. added seroquel also prn during the day for agitation if needed. -personal support worker to provide patient with outpatient mental health/psychiatry resources for appropriate follow up upon discharge -Communicated plan to patient's nurse -Will continue to follow along -Please contact with any questions.
--- NOTE | 2021-10-13 19:10 | P.PN ---
Subjective Progress Note Date: 10/13/21 EtOH abuse/withdrawal Transaminitis Hyponatremia 61-year-old male presents to the emergency room via EMS from [place] due to stumbling and falling outside injuring his left shoulder and chest wall where is he is complaining of pain. He is also experiencing significant tremors and occasional altered mental status from alcohol withdrawals. He states that he only drinks "a little bit" of red wine every day. He denies any loss of consciousness with his fall. He denies any hallucinations, delusions, suicidal or homicidal thoughts. In addition to his EtOH and smoking history has a history of hypertension and is on lisinopril at [facility]. He denies any other complaints or concerns at this time. Alert and orientated [address] as he is not from the area but overall orientated. Slow responses at times. Recent fall with complaints of left shoulder and left rib cage pain without any popping or range of motion impairment. No altered mental status or head trauma. No need for CT of the head. Check x-ray of left shoulder and left rib cage due to trauma with pain. Will need admission given active DTs with serial protocol. Blood work reveals sodium of 129, potassium 3.9, BUN of 8, creatinine 0.6 and blood glucose of 91; AST 117 with ALT of 86 10/09/2021 Patient is seen and evaluated sitting up in bed; more alert this morning; reports he's feeling as shaky; no complaining of chest and shortness of breath Vital signs are reviewed and blood pressure remains elevated at 161/88; pulse of 75 with a saturation of 100% on room air Patient remains on CIWA protocol with Ativan; has been placed on Librium 25 mg 3 times a day; continues to require extra doses of phenobarbital - Continue with IV fluids as ordered along with thiamine and folic acid 10/10/2021 Patient is seen and evaluated sitting up in bed; remains sleepy but arousable Vital signs are reviewed and stable Patient continued to be intolerant to CIWA protocol with Ativan; patient has received phenobarbital which seems to be more effective; plan to switch patient to CIWA protocol with phenobarbital Patient remains on IV fluid hydration; we will continue to monitor electrolytes and renal function 10/11/2021 Patient is seen today and is lethargic but arousable. Patient is being followed by PT/OT therapy and working with them. Patient continues to be weak and encouraged increased activity as tolerated. Patient is continued on phenobarb [facility] protocol. Mentation is improving. Patient is afebrile and denies chest pain or shortness of breath. Patient denies nausea or vomiting and has been tolerating oral intake. 10/12/2021 Patient is seen in follow-up today much more awake and alert. Patient reports he continues with weakness and has been working with physical therapy. Recommending ECF versus alcohol rehab although sister who helps care for him would like him to go to rehab to continue with PT/OT therapy for strength and mobility prior to resuming alcohol rehab. Patient is maintained on phenobarb protocol and we'll continue to wean as tolerated. Continue to monitor for any signs of withdrawal. Case management also following and working on possible ECF as patient continues to be weak and physical therapy is recommending subacute rehab. Patient is afebrile denies chest pain or shortness of breath. Patient is tolerating oral intake and encouraged oral intake and also increased activity as tolerated. Patient encouraged to get up out of the bed more often and sit up in the chair. 10/13/2021 Patient is seen this morning and is more awake and alert during early hours, but continues to become more confused and restless and anxious requiring Haldol. Patient maintained on librium taper and also phenobarb protocol for ETOH withdrawal. Will wean these medications and recommend possible seroquel at night and as needed for increased agitation. Will consult psychiatry and appreciate input and recommendations. Case management following and working on ECF. Patient is afebrile and denies chest pain or shortness of breath. Patient is willing to work with physical therapy and continues with weakness. Encouraged oral intake and increased activity as tolerated. Review of systems: Constitutional: no reports of fatigue, no fever, or chills Cardiovascular: No reports of chest pain or palpitations Respiratory: No reports of shortness of breath or cough GI: No reports of nausea, vomiting, or diarrhea : No reports of dysuria or retention Neurovascular: reports of generalized weakness All medications have been reviewed Physical exam: GENERAL: The patient is alert and oriented x3, not in any acute distress. Well developed, well nourished. HEENT: Pupils are round and equally reacting to light. EOMI. No scleral icterus. No conjunctival pallor. Normocephalic, atraumatic. No pharyngeal erythema. No thyromegaly. CARDIOVASCULAR: S1 and S2 present. No murmurs, rubs, or gallops. PULMONARY: Chest is clear to auscultation, no wheezing or crackles. ABDOMEN: Soft, nontender, nondistended, normoactive bowel sounds. No palpable organomegaly. MUSCULOSKELETAL: No joint swelling or deformity. EXTREMITIES: No cyanosis, clubbing, or pedal edema. NEUROLOGICAL: Gross neurological examination did not reveal any focal deficits. Diffusely weak SKIN: No rashes. Assessment: -EtOH abuse/withdrawal -Hyponatremia, improved -Transaminitis; likely related to EtOH abuse -Left shoulder/rib pain; x-ray completed in ED which is negative for fracture; likely related to fall -Hypertension -Chronic tobacco use; nicotine patch while inpatient -DVT prophylaxis; SCDs -full code Plan: Recommend to continue with phenobarb weaning at this time. Psych consulted for input and recommendations on medications and considering seroquel and attempting to avoid phenobarb, librium withdrawal as patient has been on this for 6 days. Doubtful that patient is withdrawing at this time. Patient is weak and working with PT/OT therapy recommending possible ECF Sister would like patient to go to rehab for strength and mobility and then return to alcohol rehab, attempted to contact sister today and will follow up tomorrow Encouraged oral intake and increased activity as tolerated Case management following and working on accepting ecf/vs alcohol rehab. Prognosis is guarded The impression and plan of care has been dictated by Neida Deleon, Nurse Practitioner as directed. MD Aston I have performed a history and examination and MDM of this patient, discussed the same with the dictator, and agree with the dictator's assessment and plan as written ,documented as a scribe. Based on total visit time, I have performed more than 50% of the visit. Objective - Vital Signs Vital signs: Vital Signs Temp 98.2 F 10/13/21 08:00 Pulse 85 10/13/21 08:00 Resp 16 10/13/21 08:00 BP 147/94 10/13/21 08:00 Pulse Ox 98 10/13/21 08:00 FiO2 Intake & Output 10/12/21 10/13/21 10/13/21 18:59 06:59 18:59 Intake Total 100 Balance 100 Weight 54.431 kg Intake: Oral 100 Other: Voiding Method Toilet Diaper Incontinent # Voids 1 5 # Bowel Movements 1 - Labs CBC & Chem 7: 10/13/21 10:23 10/13/21 10:23
[2021-10-13] MEDS: QUEtiapine 25 MG TAB PO SCH (23:37)
[2021-10-14] MEDS: lisinopriL 10 MG TAB PO SCH (08:30)
[2021-10-14] MEDS: NICOTINE 14MG/24HR PATCH TRANSDERM SCH (08:30)
[2021-10-14] MEDS: FOLIC ACID 1 MG TAB PO SCH (08:30)
[2021-10-14] MEDS: THIAMINE 100 MG TAB PO SCH ×2 (13:11→18:44)
--- NOTE | 2021-10-14 14:10 | P.PN ---
Progress Note - Text Progress Note Date: 10/14/21 Interval History: Patient was seen today for psychiatric follow-up. Patient states he is feeling a bit better today. He claimed that he was refusing the Librium however did take it this morning. Patient states that he is able to sleep better last night. He continues to be concrete and ramble at times. She appears to be more appropriate and goal oriented today. Continues to have limited insight and poor judgment which appear to be fairly chronic. Has been eating fairly. He believes that he is in a "medical facility" and does not know what city he is in. He does not know today's date. He knows his full name. 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 At this time patient denies any suicidal or homical ideations, intent or plan. Patient denies any auditory, visual hallucinations and denies any paranoia or delusions. Patient denies any side effects from the medications and has been compliant with meds. Mental Status Exam: General Appearance: Patient appears to be thin, longer hair, wearing glasses, stated age is alert, attempts to cooperate. Patient appears to have fair hygiene and grooming wearing hospital gown with fair eye contact. Behavior: Patient is calmly lying in bed without any agitated behavior. He is suggestive during conversation, improving mildly. More cooperative today. Speech: Patient's speech is fluent and nonpressured. Mood/Affect: Patient reports their mood is "ok", affect is congruent and constricted Suicidality/Homicidality: Patient denies having any suicidal or homicidal ideation intent or plan. Perceptions: Patient denies any visual hallucinations and denies any auditory hallucinations Though content/process: There is no evidence of any delusional thought content. More appropriate today. No paranoia. Memory and concentration: AOX1, he knows his full name however does not know today's date and believes that he is a medical facility". fair attention span. Cannot spell "WORLD" backwards Judgment and insight: Chronically Limited IMPRESSIONS: probable neurocognitive disorder alcohol use disorder severe dependence nicotine dependence PLAN: -At this time patient DOES NOT meet criteria for inpatient psychiatric admission. 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 Will decrease Librium to 10 mg tid for now and please decrease phenobarb slowly. continue with seroquel 25 mg qhs for agitation/insomnia with 25 mg qhs prn additional if patient needs more help with sleep, seroquel also prn during the day for agitation if needed. patient did not require any prns for 24 hrs -side door worker to provide patient with outpatient mental health/psychiatry resources for appropriate follow up upon discharge -Communicated plan to patient's nurse and SW -at this time psychiatry will sign off -Please contact with any questions.
[2021-10-14] MEDS: chlordiazePOXIDE 5 MG CAPSULE PO SCH (20:30)
[2021-10-14] MEDS: QUEtiapine 25 MG TAB PO SCH (20:30)
[2021-10-15 02:30] LABS: Appearance,Urine Clear (Clear); Bilirubin,Urine Negative (Negative); Blood,Urine Negative (Negative); Color,Urine Yellow; Glucose,Urine (UA) Negative (Negative); Ketones,Urine Negative (Negative); Leukocyte Esterase,Urine Negative (Negative); Nitrite,Urine Negative (Negative); Protein,Urine Negative (Negative); Specific Gravity,Urine 1.017 (1.001-1.035); Urobilinogen,Urine <2.0 mg/dL (<2.0)
--- NOTE | 2021-10-15 05:12 | P.PN ---
Subjective Progress Note Date: 10/14/21 EtOH abuse/withdrawal Transaminitis Hyponatremia 61-year-old male presents to the emergency room via EMS from [place] due to stumbling and falling outside injuring his left shoulder and chest wall where is he is complaining of pain. He is also experiencing significant tremors and occasional altered mental status from alcohol withdrawals. He states that he only drinks "a little bit" of red wine every day. He denies any loss of consciousness with his fall. He denies any hallucinations, delusions, suicidal or homicidal thoughts. In addition to his EtOH and smoking history has a history of hypertension and is on lisinopril at [place]. He denies any other complaints or concerns at this time. Alert and orientated [address] as he is not from the area but overall orientated. Slow responses at times. Recent fall with complaints of left shoulder and left rib cage pain without any popping or range of motion impairment. No altered mental status or head trauma. No need for CT of the head. Check x-ray of left shoulder and left rib cage due to trauma with pain. Will need admission given active DTs with serial protocol. Blood work reveals sodium of 129, potassium 3.9, BUN of 8, creatinine 0.6 and blood glucose of 91; AST 117 with ALT of 86 10/09/2021 Patient is seen and evaluated sitting up in bed; more alert this morning; reports he's feeling as shaky; no complaining of chest and shortness of breath Vital signs are reviewed and blood pressure remains elevated at 161/88; pulse of 75 with a saturation of 100% on room air Patient remains on CIWA protocol with Ativan; has been placed on Librium 25 mg 3 times a day; continues to require extra doses of phenobarbital - Continue with IV fluids as ordered along with thiamine and folic acid 10/10/2021 Patient is seen and evaluated sitting up in bed; remains sleepy but arousable Vital signs are reviewed and stable Patient continued to be intolerant to CIWA protocol with Ativan; patient has received phenobarbital which seems to be more effective; plan to switch patient to CIWA protocol with phenobarbital Patient remains on IV fluid hydration; we will continue to monitor electrolytes and renal function 10/11/2021 Patient is seen today and is lethargic but arousable. Patient is being followed by PT/OT therapy and working with them. Patient continues to be weak and encouraged increased activity as tolerated. Patient is continued on phenobarb CIOR protocol. Mentation is improving. Patient is afebrile and denies chest pain or shortness of breath. Patient denies nausea or vomiting and has been tolerating oral intake. 10/12/2021 Patient is seen in follow-up today much more awake and alert. Patient reports he continues with weakness and has been working with physical therapy. Recommending ECF versus alcohol rehab although sister who helps care for him would like him to go to rehab to continue with PT/OT therapy for strength and mobility prior to resuming alcohol rehab. Patient is maintained on phenobarb protocol and we'll continue to wean as tolerated. Continue to monitor for any signs of withdrawal. Case management also following and working on possible ECF as patient continues to be weak and physical therapy is recommending subacute rehab. Patient is afebrile denies chest pain or shortness of breath. Patient is tolerating oral intake and encouraged oral intake and also increased activity as tolerated. Patient encouraged to get up out of the bed more often and sit up in the chair. 10/13/2021 Patient is seen this morning and is more awake and alert during early hours, but continues to become more confused and restless and anxious requiring Haldol. Patient maintained on librium taper and also phenobarb protocol for ETOH withdrawal. Will wean these medications and recommend possible seroquel at night and as needed for increased agitation. Will consult psychiatry and appreciate input and recommendations. Case management following and working on ECF. Patient is afebrile and denies chest pain or shortness of breath. Patient is willing to work with physical therapy and continues with weakness. Encouraged oral intake and increased activity as tolerated. 10/14/2021 Patient is seen in follow up today and currently being weaned from librium and phenobarb and tolerating thus far. Attempt to wean the phenobarb slowly. Patient had been refusing the librium, but is taking currently. Will continue to wean. Patient continues with some weakness and is working with PT/OT and improving slowly. Patient is now on as needed seroquel and tolerating. Patient denies chest pain or shortness of breath. Patient reports to eating well with no reports of nausea or vomiting. Recommend follow up am labs and urinalysis has been ordered and pending. Patient is afebrile. Review of systems: Constitutional: no reports of fatigue, no fever, or chills Cardiovascular: No reports of chest pain or palpitations Respiratory: No reports of shortness of breath or cough GI: No reports of nausea, vomiting, or diarrhea : No reports of dysuria or retention Neurovascular: reports of generalized weakness All medications have been reviewed Physical exam: GENERAL: The patient is alert and oriented x3, not in any acute distress. Well developed, well nourished. HEENT: Pupils are round and equally reacting to light. EOMI. No scleral icterus. No conjunctival pallor. Normocephalic, atraumatic. No pharyngeal erythema. No thyromegaly. CARDIOVASCULAR: S1 and S2 present. No murmurs, rubs, or gallops. PULMONARY: Chest is clear to auscultation, no wheezing or crackles. ABDOMEN: Soft, nontender, nondistended, normoactive bowel sounds. No palpable organomegaly. MUSCULOSKELETAL: No joint swelling or deformity. EXTREMITIES: No cyanosis, clubbing, or pedal edema. NEUROLOGICAL: Gross neurological examination did not reveal any focal deficits. Diffusely weak SKIN: No rashes. Assessment: -EtOH abuse/withdrawal -Hyponatremia, improved -Transaminitis; likely related to EtOH abuse -Left shoulder/rib pain; x-ray completed in ED which is negative for fracture; likely related to fall -Hypertension -Chronic tobacco use; nicotine patch while inpatient -DVT prophylaxis; SCDs -full code Plan: Recommend to continue with phenobarb weaning at this time. Psych following and has started seroquel and weaning the librium and phenobarb. Phenobarb to wean s lowly over the course of the next few days. Urinalysis is ordered as sister was concerned for possible UTI, unlikely although will obtain to ensure no underlying infection. Patient is afebrile, WBC was normal Patient is weak and working with PT/OT therapy recommending possible ECF Sister would like patient to go to rehab for strength and mobility and then return to alcohol rehab, detailed discussion with sister Gross today about treatment plan Recommend am labs Encouraged oral intake and increased activity as tolerated Case management following and working on accepting ecf/vs alcohol rehab. Prognosis is guarded The impression and plan of care has been dictated as a scribe by Neida Deleon, Nurse Practitioner as directed. MD Aston I have performed a history and examination and MDM of this patient, discussed the same with the dictator, and agree with the dictator's assessment and plan as written ,documented as a scribe. Based on total visit time, I have performed more than 50% of the visit. Objective - Vital Signs Vital signs: Vital Signs Temp 97.8 F 10/14/21 08:00 Pulse 64 10/14/21 08:00 Resp 15 10/14/21 08:00 BP 121/73 10/14/21 08:00 Pulse Ox 98 10/14/21 08:00 FiO2 Intake & Output 10/13/21 10/14/21 10/14/21 18:59 06:59 18:59 Intake Total 1000 Balance 1000 Intake: Other 1000 Other: Voiding Method Toilet Diaper Incontinent # Voids 1 2 # Bowel Movements 1 - Labs CBC & Chem 7: 10/13/21 10:23 10/13/21 10:23 Labs: Abnormal Lab Results - Last 24 Hours (Table) 10/13/21 10/13/21 Range/Units 10:23 10:23 RBC 3.90 L (4.30-5.90) m/uL MCV 101.2 H (80.0-100.0) fL Sodium 136 L (137-145) mmol/L BUN 8 L (9-20) mg/dL Creatinine 0.62 L (0.66-1.25) mg/dL
[2021-10-15 07:39] LABS: ALT 53 U/L (4-49); AST 56 U/L (17-59); African American GFR (CKD) >90 (>60 ml/min/1.73 sqM); Albumin/Globulin Ratio 1.4; Alkaline Phosphatase 68 U/L (38-126); Anion Gap 7 mmol/L; Blood Urea Nitrogen 12 mg/dL (9-20); Calcium 9.1 mg/dL (8.4-10.2); Carbon Dioxide 27 mmol/L (22-30); Chloride 102 mmol/L (98-107); Globulin 2.9 g/dL; Glucose 87 mg/dL (74-99); Non-African American GFR(CKD) >90 (>60 ml/min/1.73 sqM); Potassium 5.2 mmol/L (3.5-5.1); Sodium 136 mmol/L (137-145); Total Bilirubin 0.3 mg/dL (0.2-1.3); Total Protein 6.9 g/dL (6.3-8.2)
[2021-10-15] MEDS: NICOTINE 14MG/24HR PATCH TRANSDERM SCH (08:42)
[2021-10-15] MEDS: lisinopriL 10 MG TAB PO SCH (08:42)
[2021-10-15] MEDS: FOLIC ACID 1 MG TAB PO SCH (08:42)
[2021-10-15] MEDS: chlordiazePOXIDE 5 MG CAPSULE PO SCH (10:23)
[2021-10-15] MEDS: THIAMINE 100 MG TAB PO SCH ×2 (12:38→16:14)
[2021-10-15] MEDS: QUEtiapine 25 MG TAB PO SCH (21:16)
[2021-10-16] MEDS: NICOTINE 14MG/24HR PATCH TRANSDERM SCH (07:24)
[2021-10-16] MEDS: lisinopriL 10 MG TAB PO SCH (07:24)
[2021-10-16] MEDS: FOLIC ACID 1 MG TAB PO SCH (07:24)
[2021-10-16] MEDS: THIAMINE 100 MG TAB PO SCH ×2 (12:36→16:36)
[2021-10-16] MEDS: QUEtiapine 25 MG TAB PO SCH (21:04)
[2021-10-17] MEDS: FOLIC ACID 1 MG TAB PO SCH (07:46)
[2021-10-17] MEDS: lisinopriL 10 MG TAB PO SCH (07:47)
[2021-10-17] MEDS: THIAMINE 100 MG TAB PO SCH ×2 (07:47→16:20)
[2021-10-17] MEDS: NICOTINE 14MG/24HR PATCH TRANSDERM SCH (07:49)
--- NOTE | 2021-10-17 13:56 | P.PN ---
Subjective Progress Note Date: 10/17/21 EtOH abuse/withdrawal Transaminitis Hyponatremia 61-year-old male presents to the emergency room via EMS from [place] due to stumbling and falling outside injuring his left shoulder and chest wall where is he is complaining of pain. He is also experiencing significant tremors and occasional altered mental status from alcohol withdrawals. He states that he only drinks "a little bit" of red wine every day. He denies any loss of consciousness with his fall. He denies any hallucinations, delusions, suicidal or homicidal thoughts. In addition to his EtOH and smoking history has a history of hypertension and is on lisinopril at [place]. He denies any other complaints or concerns at this time. Alert and orientated [address] as he is not from the area but overall orientated. Slow responses at times. Recent fall with complaints of left shoulder and left rib cage pain without any popping or range of motion impairment. No altered mental status or head trauma. No need for CT of the head. Check x-ray of left shoulder and left rib cage due to trauma with pain. Will need admission given active DTs with serial protocol. Blood work reveals sodium of 129, potassium 3.9, BUN of 8, creatinine 0.6 and blood glucose of 91; AST 117 with ALT of 86 10/09/2021 Patient is seen and evaluated sitting up in bed; more alert this morning; reports he's feeling as shaky; no complaining of chest and shortness of breath Vital signs are reviewed and blood pressure remains elevated at 161/88; pulse of 75 with a saturation of 100% on room air Patient remains on CIWA protocol with Ativan; has been placed on Librium 25 mg 3 times a day; continues to require extra doses of phenobarbital - Continue with IV fluids as ordered along with thiamine and folic acid 10/10/2021 Patient is seen and evaluated sitting up in bed; remains sleepy but arousable Vital signs are reviewed and stable Patient continued to be intolerant to CIWA protocol with Ativan; patient has received phenobarbital which seems to be more effective; plan to switch patient to CIWA protocol with phenobarbital Patient remains on IV fluid hydration; we will continue to monitor electrolytes and renal function 10/11/2021 Patient is seen today and is lethargic but arousable. Patient is being followed by PT/OT therapy and working with them. Patient continues to be weak and encouraged increased activity as tolerated. Patient is continued on phenobarb CIAL protocol. Mentation is improving. Patient is afebrile and denies chest pain or shortness of breath. Patient denies nausea or vomiting and has been tolerating oral intake. 10/12/2021 Patient is seen in follow-up today much more awake and alert. Patient reports he continues with weakness and has been working with physical therapy. Recommending ECF versus alcohol rehab although sister who helps care for him would like him to go to rehab to continue with PT/OT therapy for strength and mobility prior to resuming alcohol rehab. Patient is maintained on phenobarb protocol and we'll continue to wean as tolerated. Continue to monitor for any signs of withdrawal. Case management also following and working on possible ECF as patient continues to be weak and physical therapy is recommending subacute rehab. Patient is afebrile denies chest pain or shortness of breath. Patient is tolerating oral intake and encouraged oral intake and also increased activity as tolerated. Patient encouraged to get up out of the bed more often and sit up in the chair. 10/13/2021 Patient is seen this morning and is more awake and alert during early hours, but continues to become more confused and restless and anxious requiring Haldol. Patient maintained on librium taper and also phenobarb protocol for ETOH withdrawal. Will wean these medications and recommend possible seroquel at night and as needed for increased agitation. Will consult psychiatry and appreciate input and recommendations. Case management following and working on ECF. Patient is afebrile and denies chest pain or shortness of breath. Patient is willing to work with physical therapy and continues with weakness. Encouraged oral intake and increased activity as tolerated. 10/14/2021 Patient is seen in follow up today and currently being weaned from librium and phenobarb and tolerating thus far. Attempt to wean the phenobarb slowly. Patient had been refusing the librium, but is taking currently. Will continue to wean. Patient continues with some weakness and is working with PT/OT and improving slowly. Patient is now on as needed seroquel and tolerating. Patient denies chest pain or shortness of breath. Patient reports to eating well with no reports of nausea or vomiting. Recommend follow up am labs and urinalysis has been ordered and pending. Patient is afebrile. 10/17/2021 Patient is seen and evaluated today in follow-up currently being weaned from Librium and phenobarb and doing well. Patient is maintained on phenobarbital daily and will discontinue tomorrow. Patient is down to Librium 10 mg twice daily and will make daily for 1-2 days and discontinue as well. Patient is doing well on Seroquel and recommend continue. Discussed with case management and new plan is for patient to go home with family. Patient making multiple phone calls during exam this morning trying to "tie up some loose ends". Patient's mentation is much improved and denies chest pain, shortness of breath, or palpitations. Patient is walking with a steady gait and denies any dizziness or lightheadedness. Patient is tolerating diet with no reports of nausea or vomiting noted. Patient remains afebrile and urinalysis is negative. Review of systems: Constitutional: no reports of fatigue, no fever, or chills Cardiovascular: No reports of chest pain or palpitations Respiratory: No reports of shortness of breath or cough GI: No reports of nausea, vomiting, or diarrhea : No reports of dysuria or retention Neurovascular: No reports of weakness All medications have been reviewed Physical exam: GENERAL: The patient is alert and oriented x3, not in any acute distress. Well developed, well nourished. HEENT: Pupils are round and equally reacting to light. EOMI. No scleral icterus. No conjunctival pallor. Normocephalic, atraumatic. No pharyngeal erythema. No thyromegaly. CARDIOVASCULAR: S1 and S2 present. No murmurs, rubs, or gallops. PULMONARY: Chest is clear to auscultation, no wheezing or crackles. ABDOMEN: Soft, nontender, nondistended, normoactive bowel sounds. No palpable organomegaly. MUSCULOSKELETAL: No joint swelling or deformity. EXTREMITIES: No cyanosis, clubbing, or pedal edema. NEUROLOGICAL: Gross neurological examination did not reveal any focal deficits. SKIN: No rashes. Assessment: -EtOH abuse/withdrawal -Hyponatremia, improved -Transaminitis; likely related to EtOH abuse -Left shoulder/rib pain; x-ray completed in ED which is negative for fracture; likely related to fall -Hypertension -Continued ongoing nicotine abuse, may use nicotine patches and cessation discussed -DVT prophylaxis; SCDs -full code Plan: Recommend to continue with phenobarb weaning at this time. Psychiatry has evaluated the patient and started on Seroquel and patient is doing well with this recommend continue. Phenobarbital is now down to once daily and will discontinue tomorrow and also titrate the Librium down to daily for 2 days tomorrow. Plan is for possible discharge in the next 1-2 days with family and patient reports he is going to [place] with family. Urinalysis was negative for UTI and this was discussed with sister. Patient remains afebrile with no white count. Patient denies any burning or dysuria w ith urination. Patient is working with PT/OT therapy and doing well. Gait was steady noted on exam today Encouraged oral intake and increased activity as tolerated Case management following and working on any discharge planning needs Prognosis is guarded Possible discharge in 24 hours The impression and plan of care has been dictated by Neida Deleon, Nurse Practitioner as directed. Dr. Sharifa MD I have performed a history and examination and MDM of this patient, discussed t he same with the dictator, and agree with the dictator's assessment and plan as written ,documented as a scribe. Based on total visit time, I have performed more than 50% of the visit. Objective - Vital Signs Vital signs: Vital Signs Temp 98.0 F 10/17/21 08:00 Pulse 76 10/17/21 08:00 Resp 18 10/17/21 08:00 BP 122/85 10/17/21 08:00 Pulse Ox 94 L 10/17/21 08:00 FiO2 Intake & Output 10/16/21 10/17/21 10/17/21 18:59 06:59 18:59 Intake Total 500 Balance 500 Intake: Oral 500 Other: Voiding Method Toilet # Voids 4 3 - Labs CBC & Chem 7: 10/13/21 10:23 10/15/21 06:34
[2021-10-17] MEDS: QUEtiapine 25 MG TAB PO SCH (20:46)
[2021-10-18] MEDS: FOLIC ACID 1 MG TAB PO SCH (07:17)
[2021-10-18] MEDS: lisinopriL 10 MG TAB PO SCH (07:17)
[2021-10-18] MEDS: NICOTINE 14MG/24HR PATCH TRANSDERM SCH (07:18)
[2021-10-18 10:12] VITALS: BP 122/76; PULSE 98; RESP 18; TEMP 98.4
[2021-10-18] MEDS: THIAMINE 100 MG TAB PO SCH (12:01)
--- NOTE | 2021-10-20 10:01 | P.DS ---
Providers Date of admission: 10/07/21 18:45 Expected date of discharge: 10/18/21 Attending physician: Alcon Teague MD Consults: 10/13/21 09:19 Consult Physician Urgent Consulting Provider: Corey Crian Consult Reason/Comments: etoh abuse, medication adjustments Do you want consulting provider notified?: Yes Primary care physician: Stated None Hospital Course: Final diagnosis -EtOH abuse/withdrawal -Hyponatremia, improved -Transaminitis; likely related to EtOH abuse, improving -Left shoulder/rib pain; x-ray completed in ED which is negative for fracture; likely related to fall -Hypertension -Continued ongoing nicotine abuse -DVT prophylaxis -full code Discharge disposition Patient is being discharged in a stable condition with guarded prognosis to home with sister susy. Patient will follow-up with PCP out in [place] in the outpatient setting upon discharge. Patient is to continue with last 2 days of Librium taper to complete and has been weaned off phenobarbital. Total time taken is greater than 35 minutes. Hospital course This is a 61-year-old male who was recently admitted with altered mental status sent from [place] and acute alcohol withdrawal and was being closely monitored. Patient was maintained on large doses of phenobarbital along with Librium taper and heavily sedated. Psychiatry had evaluated the patient recommending weaning which continued over the course of several days to wean the patient off phenobarbital and mentation is much improved. Patient reports he is going out to [place] with family and his sister susy is picking him up today. Patient to establish and follow up with primary care provider out there and also discuss further about alcohol rehab as patient has chronic history of EtOH abuse. Patient's gait is steady with vital signs stable patient is anxious to be discharged today. Patient will continue his lisinopril and a prescription was provided. Currently no reports of chest pain, shortness of breath, or palpitations. Patient is afebrile. No reports of nausea or vomiting and patient is tolerating diet. Patient will be going to [facility] today. Physical exam: Gen: This is a 21-year-old male awake, alert and oriented 2-3. Thin built HEENT: Head is atraumatic, normocephalic. Pupils equal, round. Sclerae is anicteric. NECK: Supple. No JVD. No lymphadenopathy. No thyromegaly. LUNGS: Clear to auscultation. No wheezes or rhonchi. No intercostal retractions. HEART: Regular rate and rhythm. No murmur. ABDOMEN: Soft. Bowel sounds are present. No masses. No tenderness. EXTREMITIES: No pedal edema. No calf tenderness. NEUROLOGICAL: Patient is awake, alert and oriented x3. Cranial nerves 2 through 12 are grossly intact. Please refer to medication reconciliation sheet for a list of medications. The impression and plan of care has been dictated by Neida Deleon, Nurse Practitioner as directed. MD Aston I have performed a history and examination and MDM of this patient, discussed the same with the dictator, and agree with the dictator's assessment and plan as written ,documented as a scribe. Based on total visit time, I have performed more than 50% of the visit. Patient Condition at Discharge: Stable Plan - Discharge Summary Discharge Rx Participant: Yes New Discharge Prescriptions: New Nicotine 14Mg/24Hr Patch [Habitrol] 1 patch TRANSDERM DAILY 30 Days #30 patch chlordiazePOXIDE HCl [Librium] 10 mg PO DAILY #2 cap QUEtiapine [SEROquel] 25 mg PO HS 30 Days #30 tab Thiamine [Vitamin B-1] 100 mg PO BID@1200,1700 #60 tab Continue cloNIDine HCL [Catapres] 0.1 - 0.3 mg PO Q4H PRN PRN Reason: BP>160/100 lisinopriL [Zestril] 10 mg PO DAILY 30 Days #30 tab Folic Acid 0.4 mg PO DAILY Discontinued LORazepam [Ativan] 1 - 2 mg PO Q4H Thiamine [Vitamin B-1] 100 mg PO DAILY Discharge Medication List Folic Acid 0.4 mg PO DAILY 10/07/21 [History] cloNIDine HCL [Catapres] 0.1 - 0.3 mg PO Q4H PRN 10/07/21 [History] Nicotine 14Mg/24Hr Patch [Habitrol] 1 patch TRANSDERM DAILY 30 Days #30 patch 10/18/21 [Rx] QUEtiapine [SEROquel] 25 mg PO HS 30 Days #30 tab 10/18/21 [Rx] Thiamine [Vitamin B-1] 100 mg PO BID@1200,1700 #60 tab 10/18/21 [Rx] chlordiazePOXIDE HCl [Librium] 10 mg PO DAILY #2 cap 10/18/21 [Rx] lisinopriL [Zestril] 10 mg PO DAILY 30 Days #30 tab 10/18/21 [Rx] Follow up Appointment(s)/Referral(s): None,Stated [Primary Care Provider] - 1-2 days Activity/Diet/Wound Care/Special Instructions: Activity Limited until follow-up Follow-up with primary care provider on discharge Follow-up with [facility] Continue taking medications as prescribed Continue with Librium 10 mg daily for 2 days to complete and then may discontinue Avoid all alcohol intake Discharge/Stand Alone Forms: Outpatient Counseling, Inp Substance Abuse Facilities Discharge Disposition: HOME SELF-CARE
== END 2021-10-18 13:45 | disposition home or self-care (01) | DRG 897 ==
LOC: EC 17:47 → 4SSUR 18:45
PROVIDERS: ADMIT Internal Medicine; ATTEND Internal Medicine
DX: F10.231 Alcohol dependence with withdrawal delirium (principal); E87.1 Hypo-osmolality and hyponatremia; R74.01 Elevation of levels of liver transaminase levels; Z71.6 Tobacco abuse counseling; F17.210 Nicotine dependence, cigarettes, uncomplicated; I10 Essential (primary) hypertension; M25.512 Pain in left shoulder; R07.81 Pleurodynia; R07.89 Other chest pain; W01.0XXA Fall on same level from slipping, tripping and stumbling without subsequent striking against object, initial encounter; Z79.899 Other long term (current) drug therapy; R41.9 Unspecified symptoms and signs involving cognitive functions and awareness; Z71.3 Dietary counseling and surveillance
CPT/HCPCS: 36415; 80048; 80053; 80306; 80320; 81003; 83735; 84100; 85025; 85610; 93005; 96365; 96375; 99285